=== PATIENT | male | born 1985 | race Caucasian/White ===

== ENCOUNTER 2019-08-22 18:08 | Emergency (ER) | payer MEDICAID ==
[~2019-08-22] VITALS: Ht 167.6 cm; Wt 86.0 kg
[2019-08-22] MEDS ORDERED: SODIUM CHLORIDE 0.9% 1,000 ML IV ONE (22:40)
[2019-08-22 23:14] VITALS: BP 123/84
== END 2019-08-22 23:16 | disposition left against medical advice (07) ==
LOC: ER 18:08
DX: N48.1 Balanitis (principal); R73.9 Hyperglycemia, unspecified; F12.10 Cannabis abuse, uncomplicated
CPT/HCPCS: 82962; 99283; J7030